=== PATIENT | male | born 1950 | race Caucasian/White ===

== ENCOUNTER → 2018-03-21 | Outpatient (CLI) | payer MEDICARE, OTHER ==
--- NOTE | 2018-03-21 14:25 | 2DMMODE ---
[place] [address] 2 D/M-MODE ECHOCARDIOGRAM Name: EJ SALGADO Room: [facility]#: [id number] Admission: 03/21/18 Attend Phys: Genaro Banks, Discharge: Date of : 54 Date of Service: 03/21/18 1425 Report #: [id number] THIS REPORT FOR: //name// APPROVED REPORT Study performed: 03/21/2018 13:02:58 EXAM: Comprehensive 2D, Doppler, and color-flow Echocardiogram Patient Location: Out-Patient Status: routine BSA: 2.00 HR: 70 bpm BP: 146/72 mmHg Other Information Study Quality: Good Indications Congestive Heart Failure CAD Chest Pain 2D Dimensions IVSd: 10.87 (7-11mm) LVOT Diam: 20.32 (18-24mm) LVDd: 54.10 mm PWd: 10.20 (7-11mm) Ascending Ao: 28.76 (22-36mm) LVDs: 46.31 (25-40mm) Aortic Root: 29.05 mm Volumes Left Atrial Volume (Systole) LA ESV Index: 16.30 mL/m2 Aortic Valve AoV Peak Shivam.: 1.64 m/s AO Peak Gr.: 10.73 mmHg LVOT Max P.55 mmHg AO Mean Gr.: 6.15 mmHg LVOT Mean P.27 mmHg LVOT Max V: 0.80 m/s AO V2 VTI: 29.93 cm LVOT Mean V: 0.52 m/s VANCE (VTI): 1.62 cm2 LVOT V1 VTI: 14.98 cm Mitral Valve E/A Ratio: 0.51 MV Decel. Time: 331.51 [place] [address] 2 D/M-MODE ECHOCARDIOGRAM Name: EJ SALGADO Room: [facility]#: [id number] Admission: 03/21/18 Attend Phys: Genaro Banks, Discharge: Date of : 54 Date of Service: 03/21/18 1425 Report #: [id number] MV E Max Shivam.: 0.49 m/s MV PHT: 96.14 ms MVA (PHT): 2.29 cm2 TDI E/Lateral E': 4.45 E/Medial E': 8.17 Medial E' Shivam.: 0.06 m/s Lateral E' Shivam.: 0.11 m/s Pulmonary Valve PV Peak Shivam.: 1.00 m/s PV Peak Gr.: 3.97 mmHg Tricuspid Valve RAP Estimate: 5.00 mmHg TR Peak Gr.: 22.26 mmHg RVSP: 27.26 mmHg PA Pressure: 27.26 mmHg Left Ventricle Left ventricle is borderline dilated. There is global hypokinesis of the left ventricle. Paradoxical septal motion consistent with conduction abnormality. There is normal left ventricular wall thickness. Left ventricular systolic function is moderately decreased. LVEF is 30%. Grade I - abnormal relaxation pattern. Right Ventricle The right ventricle is normal size. The right ventricular systolic function is normal. Atria Left atrium is moderately dilated. The right atrium size is normal. Aortic Valve The aortic valve is normal in structure. No aortic regurgitation is present. There is no aortic valvular stenosis. Mitral Valve The mitral valve is normal in structure. Mild mitral regurgitation. No evidence of mitral valve stenosis. Tricuspid Valve The tricuspid valve is normal in structure. Mild tricuspid regurgitation. Pulmonic Valve The pulmonary valve is normal in [place] [address] 2 D/M-MODE ECHOCARDIOGRAM Name: EJ SALGADO Room: [facility]#: [id number] Admission: 03/21/18 Attend Phys: Genaro Banks, Discharge: Date of : 54 Date of Service: 03/21/18 1425 Report #: [id number] regurgitation. Great Vessels The aortic root is normal in size. IVC is normal in size and collapses >50% with inspiration. Pericardium There is no pericardial effusion. <Conclusion> Left ventricle is borderline dilated. There is global hypokinesis of the left ventricle. LVEF is 30%. Grade I - abnormal relaxation pattern. The right ventricle is normal size. The right ventricular systolic function is normal. Left atrium is moderately dilated. There is no aortic valvular stenosis. No aortic regurgitation is present. Mild mitral regurgitation. Mild tricuspid regurgitation. <ELECTRONICALLY SIGNED> By: Genaro Banks MD, FACC 03/21/18 1425 1425 1425 Genaro Banks MD, FACC /INF
--- NOTE | 2018-03-21 18:12 | CARDNUC ---
[place] [address] CARDIAC NUCLEAR IMAGING REPORT Name: EJ SALGADO Room: [facility]#: [id number] Admission: 03/21/18 Attend Phys: Genaro Banks, Discharge: Date of : 54 Date of Service: 03/21/181811 Report #: [id number] THIS REPORT FOR: //name// APPROVED REPORT Study performed: 03/21/2018 13:30:00 Indication: Chest pain, Dyspnea Patient Location: Out-Patient Stress Tech: Ethel Joel Stress Nurse: Maame King RN Ht: 5 ft 7 in Wt: 195 lbs BSA: 2.00 m2 BMI: 30.53 Medical History Medical History: Angina, Arrhythmia, CAD s/p NM, CAD s/p stent, Hyperlipidemia, HTN, Former Smoker Medications: ASA 81 mg, Carvedilol, Triamterene-HCTZ, Isosorbide, Livalo. Allergies: Penicillin Cardiac Risk Factors: Age, SOB, Past Smoker, FHX of CAD, HTN, Hyperlipidemia, CAD Previous Cardiac Procedures: Myocardial infarction, PCI Pretest Chest Pain Characteristics: No chest pain Exercise History: Sedentary Physical Disabilities: LBBB, SOA, Generalized fatigue, unstable gait. Meds Held (24 hrs): Carvedilol, Isosorbide Resting Data Rest SPECT myocardial perfusion imaging was performed in supine position 30 minutes following the intravenous injection of 11.2 mCi of Tc-99m Sestamibi. Time of rest injection: 13:55 The images were gated to evaluate regional wall motion and calculate left ventricular ejection fraction. Administration Route: IV Administration Site: Right AC Pharmacologic Stress Pharmacologic stress test was performed by injecting Regadenoson 0.4 mg IV push over 10-15 seconds immediately followed by the intravenous injection of 34.1 mCi of Tc-99m Sestamibi. Time of stress injection: 15:35 [place] [address] CARDIAC NUCLEAR IMAGING REPORT Name: EJ SALGADO Room: [facility]#: [id number] Admission: 03/21/18 Attend Phys: Genaro Banks, Discharge: Date of : 54 Date of Service: 03/21/18 1812 Report #: [id number] Administration Route: IV Administration Site: Right AC Heart Rate at time of stress injection: 117 bpm. Gated Stress SPECT was performed 40 minutes after stress injection. The images were gated to evaluate regional wall motion and calculate left ventricular ejection fraction. Prone imaging was performed. Stress Test Details Stress Test: Pharmacologic stress testing performed using 0.4 mg of regadenoson per 5 mL given IV over 10 seconds. Reason for pharmacologic stress test: physical limitation, LBBB, Generalized fatigue.. HR Max Heart Rate (APMHR): 155 bpm Resting HR: 89 bpm Target HR (85% APMHR): 131 bpm Max HR Achieved: 117 bpm % of APMHR: 75 Recovery HR: 103 bpm HR response to stress: Normal HR response to stress BP Resting BP: 142/73 mmHg Max BP: 140/74 mmHg Recovery BP: 150/76 mmHg BP response to stress: Normal blood pressure response to stress. ECG Resting ECG: Sinus Rhythm lbbb Stress ECG: nsr LBBB ST Change: None Recovery ECG: Sinus Rhythm lbbb Recovery ST Change: None Clinical Reason for Termination: Completed protocol Stress Symptoms: Lightheaded, Dyspnea, Generalized fatigue. Exercise duration: 0 min 0 sec Exercise capacity: 1.00 METs Nurse Comments 67 year old male presented with reported SOA and LBBB on EKG. Patient tolerated a sitting lexiscan with minimal side effects which resolved with caffeine. Recovery unremarkable. Patient was escorted to Nuclear Medicine for images. Patient was stable [place] [address] CARDIAC NUCLEAR IMAGING REPORT Name: EJ SALGADO Room: [facility]#: [id number] Admission: 03/21/18 Attend Phys: Genaro Banks, Discharge: Date of : 54 Date of Service: 03/21/182 Report #: [id number] time. Stress ECG Conclusion nondiagnostic Study Quality Study: Good Artifact: Mild Increased GI uptake Lung Uptake: Normal Study Data At rest, the left ventricular ejection fraction was 35%.. Post stress, the left ventricular ejection was 36%.. Perfusion STRESS SPECT images show a small mild intensity inferior defect which is noted to be fixed when compared to the SPECT rest images. There is uniform uptake of tracer in all other segments. The prone set shows normalization of the inferior defect indicating it is likely artifact. No reversible defects are seen. Wall Motion global LV dysfunction is present Nuclear Conclusion ECG Findings: non-diagnostic Clinical Findings: negative for ischemia Nuclear Findings: negative for ischemia Exercise Capacity: not assessed Left Ventricular Function: abnormal Risk Study: moderate Findings compatible with a non-ischemic cardiomyopathy, with moderate to severe LV systolic dysfunction. <Conclusion> nondiagnostic <ELECTRONICALLY SIGNED> By: Genaro Banks MD, FACC 03/21/181811 11 11 Genaro Banks MD, FACC /INF
== END ==
LOC: M.CRD 03-04 09:00
DX: I08.1 Rheumatic disorders of both mitral and tricuspid valves (principal); I25.118 Atherosclerotic heart disease of native coronary artery with other forms of angina pectoris; I11.0 Hypertensive heart disease with heart failure; I50.9 Heart failure, unspecified; E78.5 Hyperlipidemia, unspecified; Z87.891 Personal history of nicotine dependence

== ENCOUNTER 2018-04-07 09:56 | Observation (INO) | payer MEDICARE, OTHER ==
[~2018-04-07] VITALS: Ht 170.2 cm; Wt 88.0 kg
[2018-04-07] VITALS (11 sets, daily range): BP systolic 127–160; BP diastolic 68–91
[2018-04-07] MEDS ORDERED: IMDUR 30 MG TAB30 M1 PO (10:17)
[2018-04-07] MEDS ORDERED: NITROGLYCERIN0.4 MG SUBLING (10:18)
[2018-04-07] MEDS ORDERED: ASPIR 8181 MG PO (10:18)
[2018-04-07] MEDS ORDERED: LIVALO2 MG PO (10:18)
[2018-04-07] MEDS ORDERED: CARVEDILOL3.125 MG PO (10:19)
[2018-04-07] MEDS ORDERED: MAXZIDE-25 MG1 EACH PO (10:19)
[2018-04-07] MEDS ORDERED: PROAIR HFA8.5 GM INH (10:20)
[2018-04-07 10:28] LABS: HEMATOCRIT 40.5 % (42.0-52.0); HEMOGLOBIN 13.4 gm/dL (14.0-18.0); MCH 30.5 pg (26.0-34.0); MCHC 32.9 g/dL (28.0-37.0); MCV 92.4 fL (80.0-100.0); MPV 7.1 fl. (7.2-11.1); RBC 4.39 mil/uL (4.50-6.00); RDW-CV 13.7 % (10.5-14.5); WBC 9.6 thou/uL (4.0-11.0)
[2018-04-07 10:41] LABS: APTT 27.8 Seconds (25.0-31.3); INR 1.1
[2018-04-07 10:44] LABS: ANION GAP 10 mmol/L (7-16); BUN 17 mg/dL (7-18); CALCIUM 9.1 mg/dL (8.5-10.1); CHLORIDE 103 mmol/L (98-107); CO2 26 mmol/L (21-32); CREATININE 1.6 mg/dL (0.6-1.3); GLUCOSE 82 mg/dL (70-99); POTASSIUM 4.8 mmol/L (3.5-5.1); SODIUM 139 mmol/L (136-145)
[2018-04-07 10:48] LABS: ALBUMIN 3.9 g/dL (3.4-5.0); ALKALINE PHOSPHATASE 72 U/L (46-116); SGOT 20 U/L (15-37); SGPT 24 U/L (30-65); TOTAL BILIRUBIN 0.5 mg/dL (<0.1-1.0); TOTAL PROTEIN 7.9 g/dL (6.4-8.2)
--- NOTE | 2018-04-07 13:48 | EKG ---
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
--- NOTE | 2018-04-07 15:03 | EKG ---
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: : 1950 Requested By: Landry Dennis Order Number: [id number] Reading MD: Genaro Banks Measurements Intervals [place] Rate: 86 P: 60 DC: 168 QRS: 30 QRSD: 150 T: 239 QT: 405 QTc: 485 Interpretive Statements Sinus rhythm Left bundle branch block Baseline wander in lead(s) II,III,aVF Compared to ECG 04/07/2018 10:12:35 No significant changes Electronically Signed On 04-07-2018 15:03:03 PEST TECHNICIAN by Genaro Banks [email or web address] <ELECTRONICALLY SIGNED> By: Genaro Banks MD, FAC 04/07/18 1503 1451 1451 Genaro Banks MD, [facility] /EPI
--- NOTE | 2018-04-07 16:20 | NUR ---
POST HEART CATH PATIENT ADMITTED TO 205 BEDSIDE REPORT GIVEN PATIENT ORIENTED TO AND CALL LIGHT R WR SITE C/D/I AND VS STABLE DENIES PAIN ADMIT ASSMT AND HX TO BE DONE
[2018-04-07 17:26] LABS: CHOLESTEROL 152 mg/dL (<200); HDL CHOLESTEROL 61 mg/dL (>40); LDL CHOLESTEROL 77 mg/dL (<100); TC:HDL 2.5 Ratio (Not establshd); TRIGLYCERIDE 71 mg/dL (<150); VLDL 14 mg/dL (<40)
[2018-04-07 17:27] LABS: SERUM ASSESSMENT CLEAR
--- NOTE | 2018-04-07 18:26 | CARD ---
[address] [address] CARDIAC CATH REPORT Name: DAMIANEJ ISSA Room: [address] IN [facility]#: [id number] Admission: 04/07/18 Attend Phys: Genaro Banks MD Discharge: Date of : 54 Report #: [id number] THIS REPORT FOR: //name// APPROVED REPORT Study performed: 04/07/2018 12:28:10 Patient Details Patient Status: Out-Patient Room #: The patient is a 67 year-old male Event Personnel Genaro Banks Labeling Specialist, Marlen López RN Launderette Attendant, Deandre Menendez (R) Monitor, Eugenio Gil Blick, David Probation Manager Procedures Performed DENZEL Place w/wo Plasty Single DIAG Indication Chest pain Risk Factors Arterial Hypertension, Hypercholesterolemia Previous Procedures/Diagnoses Previous PCI Admission/Lab Medications/Medications given during procedure Glycoprotein IllbIlla Inhibitors, Heparin Unfract. Procedure Narrative The patient was brought electively to the Cardiac Catheterization Laboratory and was prepped and draped in a sterile manner. The right wrist was infiltrated with 1% Lidocaine subcutaneous anesthesia. A Slender Glidesheath sheath was inserted into the right radial artery. Coronary angiography was performed using coronary diagnostic catheters. The right coronary system was accessed and visualized with a Diagnostic DCR: [place] 4.0 5fr catheter. The left coronary system was accessed and visualized with a Diagnostic DCR: [place] 4.0 5fr catheter. The left ventricle was accessed and visualized with a diagnostic tiger catheter. Left ventricular/Aortic Valve gradient assessed via catheter pullback. Left ventriculogram was performed in MOFFETT projection. Closure device was deployed with a 6 [place] [address] CARDIAC CATH REPORT Name: YAHIR SALGADOEY ISSA Room: [address]#: [id number] Admission: 04/07/18 Attend Phys: Genaro Banks MD Discharge: Date of : 54 Report #: [id number] 24cm. The patient tolerated the procedure well and there were no complications associated with the procedure. There was no hematoma. Intraoperative Conscious Sedation Sedation start time: 13:05 Case end Time: 14:17 Fentanyl 50 mcg Versed 2 mg Fluoro Time: 10.7 minutes Dose: DAP 328117 cGycm2 2081 mGy Contrast Type and Amount: Visipaque 175 ml Coronary Angiography The patient's coronary anatomy is co- dominant. Diagnostic Cath Left Main normal LAD long proximal stented region , <20% ISR, mid lad 30% stenosis, apical lad is normal Diagonal 1 90-95% ostial , large vessel, jailed within LAD stent Diagonal 2 normal Circumflex normal OM1 small ostial 70% OM2 large,normal L PDA medium sized and normal, collaterals to RCA PDA are seen Right Coronary proximal 50% , focal 80%, before it's occluded before PDA R PDA occ. RPLV normal Left Ventriculography The left ventricle is mildly dilated in size with reduced contractility. The left ventricular ejection fraction is estimated to be 40%. Left ventricular wall motion abnormalities are none. There is no mitral insufficiency. Hemodynamics The aortic pressure is 102/68 mmHg with a mean of 81 mmHg. The left ventricular pressure is 105/8 mmHg with a mean of mmHg. The left ventricular end diastolic pressure is 10 mmHg. There was no gradient across the aortic valve upon pullback. Pullback from the left ventricle to the aorta revealed no gradient across [place] [address] CARDIAC CATH REPORT Name: EJ SALGADO Room: [address] IN [facility].#: [id number] Admission: 04/07/18 Attend Phys: Genaro Banks MD Discharge: Date of : 54 Report #: [id number] PCI Technique Lesion Anticoagulation was achieved with Heparin. bolus of iv aggrastat given Patient was preloaded with Plavix. Percutaneous coronary intervention was performed on the first diagonal branch segment. The lesion stenosis prior to intervention was 90% with AUNG 3 flow. A 6F XB LAD 3.5 Guide Catheter was used to engage the lm ostium. A IG: BMW 190cm Interventional Guidewire was used to cross the lesion. BALLOON DILATION A Balloon catheter Mini Trek RX 2.0 X 12 was inserted and inflated up to 18.00atm for 18seconds. Repeat angiography revealed the following post-dilatation results: 30% stenosis. Additional Inflation: 20.00atm for 20seconds. Additional Inflation: 20.00atm for 8seconds. 2nd bmw wire was placed in the lad STENT DEPLOYMENT A drug-eluting stent Freer RX Stent 2.5X15mm was inserted and inflated up to 10.00atm for 11seconds. Repeat angiography revealed the following post-stent deployment results: 0% stenosis. Additional Inflation: 10.00atm for 7seconds. Additional Inflation: 8.00atm for 27seconds. POST STENT DEPLOYMENT BALLOON DILATION After stent placement in ostium of diagonal branch that arose from within the distal portion of the stent in the mid lad, kissing balloon PTCA was performed with balloons in the ostium of the diagonal and in the mid lad. Final angiography reveals 0 % stenosis with AUNG 3 flow. PCI Technique Lesion 2 Percutaneous Coronary Intervention was performed on the mid left anterior descending artery segment. Patient was preloaded with Plavix. Percutaneous coronary intervention was performed on the mid left anterior descending artery segment. The lesion stenosis prior to intervention was 0% with AUNG 3 flow. A xblad3.5 Guide Catheter was used to engage the lm ostium. A IG: BMW 190cm Interventional Guidewire was used to cross the lesion. Balloon Dilation A Balloon catheter Trek RX 2.75 X 8 was inserted and inflated up to 8.00atm for 41seconds. Repeat angiography revealed the following post-dilatation results: 0% stenosis. Additional Inflation: 12.00atm for 27seconds. Final angiography reveals 0 % stenosis with AUNG [address] [address] CARDIAC CATH REPORT Name: EJ SALGADO Room: [address] IN [place]#: [id number] Admission: 04/07/18 Attend Phys: Genaro Banks MD Discharge: Date of : 54 Report #: [id number] flow. Conclusion 1. chronic occlusion of the rca 2. no restenosis of stent in the mid lad 3. 90% stenosis of diagonal branch that arose from distal portion of stent in the mid lad 4. moderate LV systolic dysfunction 5. successful placement of drug eluting stent in ostium of diagonal followed by kissing PTCA with balloons in the lad and diagonal Recommendations Cardiac Rehabilitation Referral Aggressive Medical Therapy Medications Administered Clopidogrel Diagnostic Cath Approved by: Genaro Banks MD Date/Time: <ELECTRONICALLY SIGNED> By: Landry Dennis MD, FAC 04/07/181824 24 24Daarturo Dennis MD, FAC /INF
[2018-04-08 00:18] VITALS: BP 117/70
--- NOTE | 2018-04-08 01:31 | NUR ---
ASSUMED CARE OF PT AT 1900. PT IS ALERT AND ORIENTED. VSS. PERRLA. NO COMPLAINTS OF PAIN. NO SIGNS OF BLEEDING FROM CATH SITE IN RIGHT ARM. PT IS IN SINUS RYTHM ON THE TELEMETRY. PT IS RESTING COMFORTABLY IN BED. RESPIRATIONS ARE EVEN AND NONLABORED. WILL CONTINUE TO MONITOR PT.
[2018-04-08 04:38] VITALS: BP 129/66
[2018-04-08 05:10] LABS: HEMATOCRIT 37.6 % (42.0-52.0); HEMOGLOBIN 12.5 gm/dL (14.0-18.0); MCHC 33.3 g/dL (28.0-37.0); MCV 93.1 fL (80.0-100.0); MPV 7.5 fl. (7.2-11.1); RBC 4.04 mil/uL (4.50-6.00); RDW-CV 13.9 % (10.5-14.5); WBC 8.6 thou/uL (4.0-11.0)
--- NOTE | 2018-04-08 07:20 | NUR ---
CHANGE OF SHIFT BEDSIDE REPORT GIVEN PATIENT SEEN AT BEDSIDE, IN BED ASLEEP ASSUMED PATIENT CARE
[2018-04-08 08:00] VITALS: BP 126/83
[2018-04-08 09:46] VITALS: BP 126/83
[2018-04-08] MEDS ORDERED: PLAVIX 75 MG TA75 M1 PO (11:07)
[2018-04-08] MEDS ORDERED: PRINIVIL5 MG PO (11:31)
[2018-04-08 12:08] VITALS: BP 126/83
--- NOTE | 2018-04-08 12:23 | NUR ---
PATIENT DISCHARGED TO HOME ALL DISCHARGE INFORMATION GIVEN, ACKNOWLEDGED, AND SIGNED COPIES GIVEN IV AND HEART MONITOR REMOVED PERSONAL BELONGINGS RETURNED ASSISTED OUT VIA GOOD CONDITION TO WAITNG CAR
--- NOTE | 2018-04-08 13:51 | EKG ---
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: : 1950 Requested By: Landry Dennis Order Number: [id number] [place] MD: Landry Dennis Measurements Intervals [place] Rate: 95 P: 73 MO: 164 QRS: 25 QRSD: 146 T: 225 QT: 399 QTc: 502 Interpretive Statements Sinus rhythm Left bundle branch block Compared to ECG 04/07/2018 14:51:06 No significant changes Electronically Signed On 04-08-2018 13:51:12 TEXTILE MACHINE MAINTENANCE MECHANIC by Landry Dennis [email or web address] <ELECTRONICALLY SIGNED> By: Landry Dennis MD, [facility] 04/08/18 135 0838 0838 Landry Dennis MD, [facility] /EPI
--- NOTE | 2018-04-09 13:28 | D ---
[address] [address] DISCHARGE SUMMARY Name: DAMIANEJ ISSA Room: [address] [place]#: [id number] Admission: 04/07/18 Attend Phys: Genaro Banks MD Discharge: 04/08/18 Date of : 54 Report #: [id number] THIS REPORT FOR: //name// CC: Landry SAMUELS physician/PCP Genaro Banks Patient's Chart DATE OF SERVICE: 04/08/2018 DISCHARGE DIAGNOSES: 1. Coronary artery disease. 2. Cardiomyopathy. 3. Hyperlipidemia. CONSULTANTS: None. PROCEDURE: Left heart catheterization with placement of a drug-eluting stent in the diagonal artery via the radial approach. HISTORY OF PRESENT ILLNESS: The patient is a 67-year-old white male who was brought to the outpatient department to undergo repeat cardiac catheterization. The patient had previous stenting of his LAD at [facility] years ago. Apparently, he had a small myocardial infarction at that time. The patient does not have a primary care physician, does not see a doctor on a regular basis. He had not been seen in our office for more than 5 years. He had stopped taking all his medications except aspirin 81 mg a day. Recently, he had some chest pressure. He did note some exertional dyspnea. He actually saw Dr. Banks in the Cardiology Clinic on 03/03. He underwent an echocardiogram that showed a dilated left ventricle with an ejection fraction of 30%, left atrial enlargement. He also underwent a nuclear stress test that showed an inferior defect that appeared to be fixed. There are no reversible defects. Ejection fraction 35%. Because of his history of chest pain, previous stent and evidence of cardiomyopathy, Dr. Banks recommended repeat cardiac catheterization. PAST MEDICAL HISTORY: Otherwise, significant for no major surgical procedures. He had a previous history of hyperlipidemia, but stopped taking his statin drugs. MEDICATIONS: His previous medications include aspirin a day, although Dr. Banks recently started him on pitavastatin, Coreg, isosorbide. ALLERGIES: HE HAD AN ALLERGY TO PENICILLIN. PHYSICAL EXAMINATION: [place] [address] DISCHARGE SUMMARY Name: YAHIR SALGADOEY ISSA Room: [address] M..#: [id number] Admission: 04/07/18 Attend Phys: Genaro Banks MD Discharge: 04/08/18 Date of : 54 Report #: [id number] VITAL SIGNS: Blood pressure 140/80, pulse 60. CHEST: Clear to auscultation. CARDIOVASCULAR: Regular rate and rhythm. ABDOMEN: Soft. EXTREMITIES: Had no edema. SKIN: Warm and dry. HOSPITAL COURSE: The patient was brought to the outpatient department. Dr. Banks performed cardiac catheterization from the right radial artery. There was global hypokinesis of the left ventricle with an estimated ejection fraction of 35%. The stent in the LAD had no restenosis. However, there is a large diagonal branch arose within the stent, had a 95% ostial stenosis. The right coronary artery appeared chronically occluded, filled by collaterals. He was felt to be having angina from the diagonal artery. I then placed a single drug-eluting stent in the diagonal ostium. The procedure was finished by performing kissing balloon. He was given IV heparin and Aggrastat. He was loaded with Plavix. The patient tolerated the procedure well. The following day, there was no hematoma in the wrist. LABORATORY DATA: His lab work included sodium 139, creatinine 1.5. Cholesterol 152, triglycerides 71, HDL 61, LDL 77. White blood cell count 8.6, hemoglobin 12.5. The following day, the patient had no further chest pain. ECG showed a sinus rhythm with left bundle-branch block. DISCHARGE MEDICATIONS: He was discharged to continue his home medications to include aspirin 81 mg a day, carvedilol 3.125 mg twice a day, Imdur 30 mg a day, pitavastatin 2 mg a day, Dyazide 1 a day, albuterol inhaler, and nitroglycerin. DISCHARGE INSTRUCTIONS: Because of his cardiomyopathy, I would consider adding an LAUREEN inhibitor or ARB. He was discharged to return to care of Dr. Banks in 1 month for followup. He was to start taking Plavix 75 mg a day following placement of the drug-eluting stent. His prognosis is guarded due to his cardiomyopathy. If he continues to have evidence of cardiomyopathy, I would consider elective implantation of a defibrillator. <ELECTRONICALLY SIGNED> By: Landry Dennis MD, FACC 04/09/18 1328 1116 1301Davisharmin Dennis MD, FACC /nt
== END 2018-04-08 12:25 | disposition home or self-care (01) ==
LOC: M.CL 09:56 → M.2W 16:03 → M.TBA-ER 16:03 → M.2W 16:18
PROVIDERS: Internal Medicine Cardiovascular Disease; ADMIT Internal Medicine Cardiovascular Disease
DX: I25.10 Atherosclerotic heart disease of native coronary artery without angina pectoris (principal); I42.9 Cardiomyopathy, unspecified; E78.5 Hyperlipidemia, unspecified; R06.00 Dyspnea, unspecified; I25.2 Old myocardial infarction; Z79.82 Long term (current) use of aspirin; Z79.899 Other long term (current) drug therapy; Z95.5 Presence of coronary angioplasty implant and graft